=== PATIENT | female | born 1960 | race Caucasian/White ===

== ENCOUNTER → 2022-03-27 | Outpatient (CLI) | payer OTHER ==
[2022-03-27 11:56] LABS: HEMOGLOBIN 13.7 gm/dl (12.3-15.3); RED BLOOD COUNT 4.37 M/UL (4.00-5.10)
[2022-03-27 12:42] LABS: BUN/CREATININE RATIO 22 (0-10)
[2022-03-27 12:43] LABS: WHITE BLOOD COUNT 3.6 K/UL (4.5-11.0)
== END ==
LOC: LAB 11:24
PROVIDERS: Internal Medicine
DX: K75.81 Nonalcoholic steatohepatitis (NASH) (principal)
CPT/HCPCS: 36415; 80053; 82105; 85027; 85610